=== PATIENT | female | born 1945 | race Caucasian/White ===

== ENCOUNTER 2017-01-25 10:15 | Inpatient (IN) | payer MEDICARE ==
[2017-01-25 11:04] VITALS: BMI 21.8
[2017-01-27] MEDS ORDERED: Phenylephrine 10 MG/NS 250 ML 250 ML ONE (06:11)
[2017-01-27] MEDS ORDERED: Tranexamic Acid 1,000 MG/100 ML BAG ONE ×2 (06:21→09:49)
[2017-01-27] MEDS ORDERED: CEFAZOLIN/Water 2 GM/20 ML SYRINGE ONE (06:22)
[2017-01-27] MEDS ORDERED: Ropivacaine 0.2% HCl/PF 20 ML ONE (06:29)
[2017-01-27] MEDS ORDERED: Fentanyl 100 MCG/2 ML VIAL ONE (06:29)
[2017-01-27] MEDS ORDERED: Midazolam HCl 2 mg/2 ml Vial ONE (06:29)
[2017-01-27] MEDS ORDERED: Levofloxacin 500 mg/D5W 100 ml Premix Bag ONE (06:41)
[2017-01-27] MEDS ORDERED: Ondansetron HCl/PF 4 MG/2 ML Vial ONE ×2 (07:15→07:16)
[2017-01-27] MEDS ORDERED: Dexamethasone 20 MG/5 ML VIAL ONE (07:16)
[2017-01-27] MEDS ORDERED: Glycopyrrolate 0.2 MG/ML 5 ML SYRINGE ONE (07:16)
[2017-01-27] MEDS ORDERED: Propofol 200 MG/20 ML VIAL ONE (07:16)
[2017-01-27] MEDS ORDERED: PHENYLEPHRINE-NS 100 MCG/ML 10 ML SYRINGE ONE (07:16)
[2017-01-27] MEDS ORDERED: traMADol HCl 50 MG TAB PO PRN ×2 (07:32)
[2017-01-27] MEDS ORDERED: Ropivacaine 0.2% 550 ML 550 ML NERVE BLCK SCH (07:32)
[2017-01-27] MEDS ORDERED: Ketorolac Tromethamine 30 MG/ML VIAL IVP PRN (07:32)
[2017-01-27] MEDS ORDERED: Zolpidem Tartrate 5 MG TAB PO PRN (07:32)
[2017-01-27] MEDS ORDERED: Promethazine HCl 25 MG/ML VIAL IM PRN ×2 (07:32→09:34)
[2017-01-27] MEDS ORDERED: HYDROcodone/Acetaminophen 10/325 mg Tablet PO PRN ×2 (07:32)
[2017-01-27] MEDS ORDERED: Ondansetron HCl/PF 4 MG/2 ML Vial IVP PRN ×2 (07:32→09:34)
[2017-01-27] MEDS ORDERED: Fentanyl 100 MCG/2 ML VIAL IV PRN (07:37)
[2017-01-27] MEDS ORDERED: Promethazine HCl 25 MG/ML VIAL SLOW IVP PRN (09:34)
--- NOTE | 2017-01-27 10:37 | RAD ---
TWO VIEWS LEFT SHOULDER: Date: 01-27-17 Comparison: 01-20-17 History: Evaluate shoulder following arthroplasty. FINDINGS: There is a total shoulder arthroplasty on the left. Fracture fragments associated with previously not ed humeral head fracture are again noted lateral to the prosthesis. No widening of the AC or CC inter space. No evidence for hardware failure. IMPRESSION: Interval placement of total shoulder arthroplasty on the left. POS: JUSTIN
--- NOTE | 2017-01-27 11:50 | OP ---
DATE OF PROCEDURE: 01/27/2017 PREOPERATIVE DIAGNOSIS: Left proximal humerus 4-part fracture with biceps tendonopathy. POSTOPERATIVE DIAGNOSIS: Left proximal humerus 4-part fracture with biceps tendonopathy. PROCEDURE PERFORMED: 1. Left reverse total shoulder arthroplasty. 2. Biceps tenodesis. STAFF: Carlito Walker M.D. MOSAICIST: Emeka Crocker PA-C. ANESTHESIA: Fernandes. The patient received general endotracheal intubation, interscalene block. ESTIMATED BLOOD LOSS: 100 mL. TOURNIQUET TIME: None. IMPLANTS: A Tornier 25 mm baseplate with 2 locking, 2 nonlocking screws, a 36 mm sphere centered fle xed 4B cemented long stem with a 0 high offset tray and a 9 poly. ANTIBIOTICS: Ancef 2 grams, Levaquin 500, TXA 1 gram. COMPLICATIONS: None. HISTORY OF PRESENT ILLNESS: Ms. Sanchez is a pleasant 72-year-old female who presented to me with lef t proximal humerus fracture slipping on 01/20/2017. The patient is right hand dominant. Pain is 7/1 0. The patient had a 4-part fracture, did not feel would undergo fixation. I felt it would be best treated with a reverse shoulder arthroplasty. I discussed with the patient the risks and benefits of the surgery to include pain, scar, bleeding, infection, damage to vital structures, decreased range of motion or strength, fracture above or below the stem, need for further surgery, failure of procedu re, continued pain despite surgical intervention. The patient and family understood the risks and be nefits of procedure and elected to proceed. PROCEDURE NOTE: Time-out was performed designating the patient's left upper extremity as the operati ve site based on sight, consents and marked completion of timeout, the patient's left upper extremity was prepped and draped in sterile fashion. Deltopectoral intervals placed, went down, found the vei n, retracted it laterally, took down a portion of the pec, came down onto the biceps in the shaft. W e cut a hole in what would have been the space of the rotator interval that ripped off the anterior a spect of the greater and the lesser and the greater were there and shaft by itself. We exposed the h ead, removed it in block as 1 piece. When doing this, we split the interval up to the coracoid and e xposed the glenoid. We cleaned up 360 degree release, we had cut tenotomized the biceps and exposed the entire glenoid. We took off cartilage and placed after we had reamed, placed a 25 mm baseplate, placed anterior, posterior nonlocking screws. Did not have a great purchase fixation, I did get a go od fixation on my 2 locking screws, had nice stable construct. We then placed our centered sphere. We moved back to our humerus. The patient had broken the head, had split down the lateral aspect of the bone, we were down basically to the base of the calcar. I looked at both 155 degree stem and the Flex stem and I felt that I had 2 cortical widths, 2.5 cortical widths of the stem and the shaft, fe lt I would get the length that I desired. Therefore, I placed my trial. I cemented into place, let it cure for about 18 minutes until completely hard. There was no room for drill holes in the bone, I was concerned it might further destabilize it. We then chose a finally a 4V stem with a 0 offset tr ay and a 9 mm poly in which we placed into position, reduced the shoulder, had good stability and goo d rotation. The version was at 20 degrees retroversion. We had passed a suture underneath the neck of trim for a cerclage wire which we cerclaged the cuff around laterally, we used two [id number] stitches with #5 Ethibond to close the cuff over the shoulder. We then placed the biceps and tenode sed it into this rotator cuff plane. We then washed and then we closed the deltopectoral subcu and p laced garfield. The patient will be admitted to the hospital, receive Ancef and Levaquin in the morning. The patient will be in a sling, work on elbow, wrist, and hand motion until followup.
[2017-01-27] MEDS ORDERED: diphenhydrAMINE 50 MG CAP PO PRN (11:53)
[2017-01-27] MEDS ORDERED: Methocarbamol 500 MG TAB PO PRN (11:53)
[2017-01-27] MEDS ORDERED: Acetaminophen 325 MG TAB PO PRN (11:53)
[2017-01-27] MEDS ORDERED: Ondansetron ODT 4 MG TAB PO PRN (11:53)
[2017-01-27] MEDS ORDERED: Bisacodyl 10 MG SUPP PR PRN (11:53)
[2017-01-27] MEDS ORDERED: Milk Of Magnesia 30 ML UDCUP PO PRN (11:53)
[2017-01-27] MEDS ORDERED: Ropivacaine 0.5% HCl/PF (150 MG/30 ML VIAL) ONE (13:41)
[2017-01-27] MEDS: CEFAZOLIN/Water 2 GM/20 ML SYRINGE SLOW IVP SCH ×2 (16:04→21:20)
[2017-01-27] MEDS: Dextrose 5 %-0.45 % NaCl 1,000 ML IV SCH (16:27)
[2017-01-27] MEDS ORDERED: FLU VACC TS2017-18 (>65YR) 0.5 ML SYRINGE IM ONE (17:15)
[2017-01-27] MEDS ORDERED: Atorvastatin Calcium 10 MG TAB PO SCH (21:00)
[2017-01-27] MEDS: Famotidine 20 MG TAB PO SCH (21:19)
[2017-01-28] MEDS: Dextrose 5 %-0.45 % NaCl 1,000 ML IV SCH (05:09)
[2017-01-28 08:24] VITALS: BP 164/84; TEMP 99.5
[2017-01-28] MEDS: Famotidine 20 MG TAB PO SCH (08:37)
[2017-01-28] MEDS ORDERED: Multivitamin W/ Minerals 1 TAB PO SCH (09:00)
== END 2017-01-28 11:36 | disposition home or self-care (01) | DRG 483 ==
LOC: SURG A 01-27 06:07 → SJJU 01-27 11:39
PROVIDERS: ADMIT Orthopaedic Surgery; ATTEND Orthopaedic Surgery
PROC: 3E0T3BZ Introduction of Anesthetic Agent into Peripheral Nerves and Plexi, Percutaneous Approach (ICD-10-PCS; principal; 2017-01-27)
PROC: 0RRK00Z Replacement of Left Shoulder Joint with Reverse Ball and Socket Synthetic Substitute, Open Approach (ICD-10-PCS; 2017-01-27)
DX: S42.202A Unspecified fracture of upper end of left humerus, initial encounter for closed fracture (principal); E78.5 Hyperlipidemia, unspecified; W01.0XXA Fall on same level from slipping, tripping and stumbling without subsequent striking against object, initial encounter
CPT/HCPCS: 81001; 87081; A4306; C1713; G8978-GP-CJ; G8979-GP-CJ; G8980-GP-CJ; G8987-GO-CJ; G8988-GO-CJ; G8989-GO-CJ; J1100; J1885; J1956; J2250; J2405; J2704; J2795; J3010

== ENCOUNTER 2017-01-25 10:45 | Outpatient (CLI) | payer MEDICARE ==
[2017-01-25 11:48] LABS: Bilirubin Negative (Negative); Blood, Urine Negative (Negative); Glucose, Urine (Dipstick) Negative (Negative); Ketone, Urine Trace mg/dL (Negative); Nitrite Negative (Negative); Protein, Urine (Dipstick) Trace mg/dL (Neg-Trace)
[2017-01-25 11:49] LABS: Bacteria/HPF Rare-Few HPF (None Seen); Hyaline Casts/LPF 4-6 HYALINE CAST LPF (0-3 Hyaline); Squamous Epithelial 0-3 HPF (0-3); WBC/HPF 0-3 HPF (0-3)
== END 2017-01-25 10:46 | disposition home or self-care (01) ==
LOC: LABBT 10:45
PROVIDERS: ATTEND Orthopaedic Surgery
DX: Z01.818 Encounter for other preprocedural examination (principal); S42.202A Unspecified fracture of upper end of left humerus, initial encounter for closed fracture
CPT/HCPCS: 81001; 87081

== ENCOUNTER 2017-06-13 08:19 | Outpatient (CLI) | payer MEDICARE | END 2017-06-13 08:20 | disposition home or self-care (01) | LOC: BICMAMMO 08:19 | PROVIDERS: ATTEND Family Medicine | DX: Z12.31 Encounter for screening mammogram for malignant neoplasm of breast (principal); Z78.0 Asymptomatic menopausal state; E78.00 Pure hypercholesterolemia, unspecified; M81.0 Age-related osteoporosis without current pathological fracture; Z79.899 Other long term (current) drug therapy; Z80.3 Family history of malignant neoplasm of breast | CPT/HCPCS: 77063; 77067; 77080 ==

== ENCOUNTER 2018-03-21 17:30 | Observation (INO) | payer MEDICARE ==
[~2018-03-21 17:30] MED LIST: Iopamidol 370 76% 50 ML VIAL FS ONE
[2018-03-21 17:56] LABS: #Basophils 0.1 thou/uL (0.0-0.2); #Eosinphils 0.2 thou/uL (0.0-0.7); #Lymphocytes 3.6 thou/uL (1.20-3.40); #Monocytes 0.8 thou/uL (0.11-0.59); #Neutrophils 3.8 thou/uL (1.40-6.50); %Basophils 0.8 % (0.0-1.0); %Lymphocytes 42.2 % (21.0-51.0); %Monocytes 9.3 % (0.0-10.0); %Neutrophils 45.6 % (42.0-75.0); Hemoglobin 13.3 g/dL (12.0-16.0); Mean Corpuscular HGB CONC 33.6 g/dL (32.0-36.0); Mean Corpuscular Hemoglobin 30.2 pg (27.0-31.0); Mean Platelet Volume 8.6 fL (7.4-10.4); Platelet Count 196 thou/uL (130-400); RBC Distribution Width 11.4 % (11.5-14.5); White Blood Cell (WBC) Count 8.4 thou/uL (4.8-10.8)
[2018-03-21 18:04] LABS: ALT (SGPT) 28 U/L (8-55); AST (SGOT) 29 U/L (5-34); Albumin 4.4 g/dL (3.4-4.8); Alkaline Phosphatase 177 U/L (40-150); Anion Gap 14 mmol/L (10-20); BUN (Urea Nitrogen) 22 mg/dL (9.8-20.1); Bilirubin, Total 0.6 mg/dL (0.2-1.2); CK (CPK) 100 U/L (29-168); Calc. Creatinine Clearance 0 mL/min (70-130); Calcium 10.4 mg/dL (7.8-10.44); Carbon Dioxide 24 mmol/L (23-31); Chloride 104 mmol/L (98-107); Estimated GFR-MDRD 76; Globulin 2.7 g/dL (2.4-3.5); Glucose 103 mg/dL (83-110); INR-International Normal Ratio 0.9; PTT 25.3 SEC (22.9-36.1); Potassium 3.8 mmol/L (3.5-5.1); Protein, Total 7.1 g/dL (6.0-8.3); Prothrombin Time 12.7 SEC (12.0-14.7); Sodium 138 mmol/L (136-145)
[2018-03-21 18:08] LABS: Troponin I Less than 0.010 ng/mL (< 0.028)
--- NOTE | 2018-03-21 19:50 | CT ---
CT BRAIN: 03/21/2018 PROVIDED CLINICAL HISTORY: Left-sided facial droop. Left-sided numbness. Slurred speech. COMPARISON: 11/27/2016 FINDINGS: The ventricular system is normal in size and morphology. There is no evidence for intracranial hemor rhage or mass effect. Chronic microvascular ischemic changes are seen, predominantly involving the c erebral white matter. There is no evidence for an acute abnormality involving the extracranial soft tissues or osseous structures. IMPRESSION: No evidence for intracranial hemorrhage or mass effect. Findings communicated to Dr. Malone in the emergency department at 5:44 p.m. on 03/21/2018. CODE CR POS: JUSTIN
--- NOTE | 2018-03-21 20:02 | CT ---
CT ANGIOGRAM BRAIN WITH IV CONTRAST AND 3D MIP RECONSTRUCTIONS: CT ANGIOGRAM GREAT VESSELS NECK WITH IV CONTRAST AND 3D MIP RECONSTRUCTIONS: PROVIDED CLINICAL HISTORY: Left-sided facial droop and slurred speech. FINDINGS: There is a normal three-vessel configuration of the great vessels at the arch. The right innominate and subclavian arteries are not well evaluated on the basis of beam hardening artifact from contrast material within the right subclavian and brachiocephalic veins. Given this limitation, the great ves sels of the neck demonstrate no significant stenosis. Minimal atherosclerotic vascular calcification involves the proximal internal carotid arteries bilaterally. There is calcified and noncalcified plaque involving the carotid portions of both internal carotid ar teries. There is no evidence for focal vessel stenosis, branch occlusion, or aneurysm involving the remainder of the intracranial circulation. Biapical parenchymal scarring is seen involving the lung apices. Degenerative changes are seen invol ving the cervical spine. IMPRESSION: 1. No significant stenosis is apparent involving either internal carotid artery. 2. No significant stenosis is apparent involving the intracranial circulation. Findings were discussed with Dr. Malone in the emergency department at 5:58 p.m. on 03/21/2018. CODE CR POS: JUSTIN
[2018-03-21 21:18] VITALS: BMI 21.0
[2018-03-21] MEDS ORDERED: Acetaminophen 325 MG TAB PO PRN (22:05)
[2018-03-21] MEDS ORDERED: Guaifenesin DM 100-10/5 ML UDCUP PO PRN (22:05)
[2018-03-21] MEDS ORDERED: Bisacodyl 5 MG TAB PO PRN (22:05)
[2018-03-21] MEDS ORDERED: Calcium Carbonate 500 MG ChewTAB PO PRN (22:05)
[2018-03-21] MEDS ORDERED: hydrALAZINE 20 MG/ML VIAL SLOW IVP PRN (22:05)
[2018-03-21] MEDS ORDERED: Zolpidem Tartrate 5 MG TAB PO PRN (22:05)
[2018-03-21] MEDS ORDERED: Ondansetron ODT 4 MG TAB PO PRN (22:05)
[2018-03-21] MEDS ORDERED: Senokot S 8.6-50 MG TAB PO PRN (22:05)
[2018-03-21] MEDS ORDERED: Ondansetron PF 4 MG/2 ML Vial IVP PRN (22:05)
[2018-03-21] MEDS ORDERED: Labetalol HCl 100 MG/20 ML VIAL SLOW IVP PRN (22:05)
[2018-03-21 22:06] LABS: Troponin I Less than 0.010 ng/mL (< 0.028)
[2018-03-21] MEDS ORDERED: traMADol HCl 50 MG TAB PO PRN (22:10)
[2018-03-22 00:51] LABS: Troponin I 0.013 ng/mL (< 0.028)
--- NOTE | 2018-03-22 05:26 | HP ---
CHIEF COMPLAINT: Left arm weakness and slurred speech. HISTORY OF PRESENT ILLNESS: This is a 73-year-old female with past medical history of hyperlipidemia, presenting to ED with left arm weakness and slurred speech, which began on the day of admission. Per the patient, she was in the kitchen, making macaroni and cheese when she started having left arm weakness with left-sided facial droop and slurred speech around 4:30 p.m. on the day of admission. Per the patient, the was in the house and witnessed her have the symptoms. Therefore, this prompted the ED visit. The patient states that she has a daughter, but daughter was not in the house at that time. At this time, the patient is lying in bed, and the patient stated that she does not have any symptoms at this time. The patient denies any fever, chills, nausea, vomiting, chest pain, palpitation, abdominal pain, diarrhea, constipation, hematochezia, hematuria, or melena. REVIEW OF SYSTEMS: All systems are reviewed and are negative at this time. PAST MEDICAL HISTORY: Hyperlipidemia. PAST SURGICAL HISTORY: Tubal ligation. FAMILY HISTORY: Reviewed and not significant to this visit. SOCIAL HISTORY: The patient denies alcohol use. Denies any illicit drugs. PSYCHIATRIC HISTORY: No psych history. ALLERGIES: THE PATIENT DOES NOT HAVE ANY KNOWN DRUG ALLERGIES. CURRENT MEDICATIONS: The patient takes: 1. Simvastatin 10 mg. 2. Multivitamins. PHYSICAL EXAMINATION: VITAL SIGNS: Blood pressure 152/62, pulse is 50, respiratory rate of 18, temperature of 98.3, oxygen saturation of 100. GENERAL: The patient is lying in bed, does not appear to be in any acute distress. The patient is talking to me in full sentences. HEENT: Normocephalic and atraumatic. Pupils are equally round and reactive to light. Extraocular movements are intact. No scleral icterus. No conjunctival pallor. Mucous membranes are moist. NECK: Trachea is midline. No JVD. Full range of motion. CARDIAC: Positive S1 and S2. Regular rate and rhythm. No murmurs, no gallops, no rubs appreciated. LUNGS: Clear to auscultation bilaterally. No wheezing, no rales, no rhonchi appreciated. ABDOMEN: Soft, nontender, and nondistended. Positive bowel sounds in all quadrants. No peritoneal signs. EXTREMITIES: The patient has 5/5 upper extremity strength and 5/5 lower extremity strength. The patient has good information systems project manager bilaterally at the upper extremities and the patient has good pulses bilaterally at the upper and lower extremities. SKIN: Warm, dry, and intact. No lesions noted. No rashes noted. NEUROLOGIC: Cranial nerves 2 through 12 grossly intact. No neurologic deficits noted at this time. IMAGING DATA: EKG; 12-lead EKG shows sinus rhythm with a rate of 76. CT of the head is negative. There is no acute intracranial pathology noted. CT [place] angio with contrast showed no significant stenosis involving either the internal carotid arteries. LABORATORY DATA: WBC is 8.4, hemoglobin 13.3, hematocrit is 39.6, MCV is 90, RDW is 11.4. PT is 12.7, INR 0.9. Electrolytes; sodium is 138, potassium is 3.8, chloride is 104, carbon dioxide of 24, anion gap of 14, BUN is 22, creatinine is 0.75, AST 29, ALT 28, alkaline phosphatase 177. Troponin is less than 0.010 x3. ASSESSMENT AND PLAN: 1. This is a 73-year-old female with history of hyperlipidemia, being admitted for left-sided weakness likely due to transient ischemic attack rule out cerebrovascular accident. At this time, CT of the head has been negative. We have ordered MRI of the head. We have consulted Neurology. We will start the patient on aspirin and atorvastatin. PT, OT. We will follow up with their recommendations. We will follow up with neuro recommendations. The patient has been admitted to the stroke unit. We will monitor the patient closely. 2. Hyperlipidemia. We will continue the patient on atorvastatin 80 mg daily. We will monitor the patient closely. 3. Deep venous thrombosis and gastrointestinal prophylaxis. Job ID: [id number]
[2018-03-22 06:06] LABS: #Basophils 0.1 thou/uL (0.0-0.2); #Eosinphils 0.1 thou/uL (0.0-0.7); #Lymphocytes 1.9 thou/uL (1.20-3.40); #Monocytes 0.6 thou/uL (0.11-0.59); #Neutrophils 4.6 thou/uL (1.40-6.50); %Basophils 0.9 % (0.0-1.0); %Lymphocytes 25.4 % (21.0-51.0); %Monocytes 8.5 % (0.0-10.0); %Neutrophils 63.2 % (42.0-75.0); Mean Corpuscular HGB CONC 34.1 g/dL (32.0-36.0); Mean Corpuscular Hemoglobin 30.4 pg (27.0-31.0); Mean Corpuscular Volume 89.1 fL (78.0-98.0); Mean Platelet Volume 8.9 fL (7.4-10.4); Platelet Count 187 thou/uL (130-400); RBC Distribution Width 11.5 % (11.5-14.5); Red Blood Cell (RBC) Count 4.29 mill/uL (4.20-5.40); White Blood Cell (WBC) Count 7.3 thou/uL (4.8-10.8)
[2018-03-22 06:25] LABS: Anion Gap 12 mmol/L (10-20); BUN (Urea Nitrogen) 16 mg/dL (9.8-20.1); Calc. Creatinine Clearance 67 mL/min (70-130); Calcium 10.1 mg/dL (7.8-10.44); Carbon Dioxide 26 mmol/L (23-31); Cardiac Risk 3.1 (Less than 4.5); Chloride 104 mmol/L (98-107); Cholesterol 172 mg/dl (< 200 Desired); Estimated GFR-MDRD 85; Glucose 95 mg/dL (83-110); HDL Cholesterol 55 mg/dL (>60 Neg Risk); LDL Cholesterol, Calculated 104 mg/dL; Potassium 3.8 mmol/L (3.5-5.1); Sodium 138 mmol/L (136-145); Triglycerides 65 mg/dL (Less than 150)
[2018-03-22] MEDS ORDERED: Lorazepam 1 MG TAB PO PRN (08:43)
[2018-03-22] MEDS ORDERED: Famotidine/PF 20 mg/2ml Vial SLOW IVP SCH (09:00)
[2018-03-22] MEDS ORDERED: Enoxaparin Sodium 40 MG/0.4 ML SYRINGE SC SCH (09:00)
[2018-03-22] MEDS: Aspirin 81 mg Enteric Coated Tablet PO SCH (09:36)
[2018-03-22] MEDS: Multivitamin W/ Minerals 1 TAB PO SCH (09:36)
[2018-03-22] MEDS: Famotidine 20 MG TAB PO SCH ×2 (09:36→21:15)
--- NOTE | 2018-03-22 13:20 | MRI ---
MRI BRAIN WITHOUT CONTRAST: 03/22/2018 HISTORY: Left-sided weakness and slurred speech. Left facial droop. Assess for acute infarction. TECHNIQUE: Multiplanar, multisequence MR imaging of the brain provided without contrast. FINDINGS: The diffusion-weighted imaging demonstrates no evidence for acute infarction. Axial gradient echo im aging demonstrates no evidence for intracranial hemorrhage. Regional bone marrow signal intensity appears within normal limits. There is prominent extensive periventricular, deep, and subcortical white matter T2 and FLAIR hyperin tensity, evidence of prominent small vessel disease. Mild associated cerebral volume loss. No midli ne shift or mass effect. The arterial flow voids, at the axial level of the skull base, appear unremarkable on the T2 weighted imaging. IMPRESSION: Prominent small vessel disease with no evidence for acute infarction. POS: RADHA
[2018-03-22] MEDS ORDERED: Labetalol HCl 100 MG/20 ML VIAL SLOW IVP PRN (13:40)
[2018-03-22] MEDS ORDERED: Atorvastatin Calcium 40 MG TAB PO SCH (21:00)
[2018-03-22] MEDS ORDERED: Atorvastatin Calcium 20 MG TAB PO SCH (21:00)
--- NOTE | 2018-03-22 21:20 | PDOC.PN ---
- Subjective Encounter Start Date: 03/22/18 Encounter Start Time: 17:00 Patient seen and examined for TIA. No new focal deficits. No new complaints. No overnight events - Objective Resuscitation Status - Order Detail: 03/21/18 22:05 Resuscitation Status Routine Resuscitation Status: FULL: Full Resuscitation MAR Reviewed: Yes Vital Signs & Weight: Vital Signs (12 hours) Temp Pulse Pulse Pulse Resp BP BP 03/22/18 15:25 77 81 140/89 142/85 H 03/22/18 15:14 99.9 F H 74 16 03/22/18 11:53 98.7 F 84 16 BP Pulse Ox 03/22/18 15:25 03/22/18 15:14 123/78 96 03/22/18 11:53 131/88 96 Weight Weight 126 lb 8 oz I&O: 03/21/18 03/22/18 03/23/18 06:59 06:59 06:59 Intake Total 960 Balance 960 Result Diagrams: 03/22/18 05:22 03/22/18 05:22 Radiology Reviewed by me: Yes (MRI - No CVA - small vessel disease) EKG Reviewed by me: Yes (Tele SR) Phys Exam - Physical Examination Constitutional: NAD Respiratory: no wheezing, no rales, no rhonchi, clear to auscultation bilateral Cardiovascular: RRR, no significant murmur, no rub no heaves/pulsations Gastrointestinal: soft, non-tender, no distention, positive bowel sounds Musculoskeletal: no edema, pulses present Neurological: non-focal, normal sensation, moves all 4 limbs Psychiatric: normal affect, A&O x 3 Skin: no rash Dx/Plan (1) TIA (transient ischemic attack) Code(s): G45.9 - TRANSIENT CEREBRAL ISCHEMIC ATTACK, UNSPECIFIED Status: Acute (2) HLD (hyperlipidemia) Code(s): E78.5 - HYPERLIPIDEMIA, UNSPECIFIED Status: Chronic (3) CKD (chronic kidney disease) stage 2, GFR 60-89 ml/min Code(s): N18.2 - CHRONIC KIDNEY DISEASE, STAGE 2 (MILD) Status: Chronic (4) HTN (hypertension) Code(s): I10 - ESSENTIAL (PRIMARY) HYPERTENSION Status: Chronic - Plan plan discussed w/ family, DVT proph w/lovenox, DVT proph w/SCDs ASA started -: Increase Lipitor dose -: Await Echo -: Carotids negative -: Probably will not need anti HTN meds, DC home after Echo Review of Systems - Review of Systems Respiratory: negative: Cough, Dry, Shortness of Breath, Hemoptysis, SOB with Excertion, Pleuritic Pain, Sputum, Wheezing Cardiovascular: negative: chest pain, palpitations, orthopnea, paroxysmal nocturnal dyspnea, edema, light headedness, other Gastrointestinal: negative: Nausea, Vomiting, Abdominal Pain, Diarrhea, Constipation, Melena, Hematochezia, Other Genitourinary: negative: Dysuria, Frequency, Incontinence, Hematuria, Retention , Other - Medications/Allergies Allergies/Adverse Reactions: Allergies Allergy/AdvReac Type Severity Reaction Status Date / Time No Known Allergies Allergy Unverified 01/25/17 11:04 Medications: Current Medications Acetaminophen (Tylenol) 650 mg PO Q4H PRN PRN Reason: Headache/Fever/Mild Pain (1-3) Aspirin (Ecotrin) 81 mg PO DAILY [facility] Last Admin: 03/22/18 09:36 Dose: 81 mg Atorvastatin Calcium (Lipitor) 20 mg PO HS [facility] Last Admin: 03/22/18 21:15 Dose: 20 mg Bisacodyl (Dulcolax) 10 mg PO DAILYPRN PRN PRN Reason: Constipation Calcium Carbonate (Tums) 1,000 mg PO Q4H PRN PRN Reason: Heartburn or Indigestion Enoxaparin Sodium (Lovenox) 40 mg SC 0900 [facility] Last Admin: 03/22/18 09:36 Dose: 40 mg Famotidine (Pepcid) 20 mg PO BID [facility] Last Admin: 03/22/18 21:15 Dose: 20 mg Guaifenesin/Dextromethorphan (Robitussin Dm) 15 ml PO Q4H PRN PRN Reason: Cough Hydralazine HCl (Apresoline) 10 mg SLOW IVP Q4H PRN PRN Reason: BP > 220/110 Iron/Minerals/Multivitamins (Theragran M) 1 tab PO DAILY [facility] Last Admin: 03/22/18 09:36 Dose: 1 tab Labetalol HCl (Normodyne) 10 mg SLOW IVP Q4H PRN PRN Reason: Systolic BP > 180 Lorazepam (Ativan) 1 mg PO DAILY PRN PRN Reason: Claustrophobia Last Admin: 03/22/18 10:18 Dose: 1 mg Ondansetron HCl (Zofran Odt) 4 mg PO Q6H PRN PRN Reason: Nausea/Vomiting Ondansetron HCl (Zofran) 4 mg IVP Q6H PRN PRN Reason: Nausea/Vomiting Senna/Docusate Sodium (Senokot S) 2 tab PO BID PRN PRN Reason: Constipation Sodium Chloride (Flush - Normal Saline) 10 ml IVF Q12HR PRN PRN Reason: Saline Flush Sodium Chloride (Flush - Normal Saline) 10 ml IVF PRN PRN PRN Reason: Saline Flush Tramadol HCl (Ultram) 100 mg PO Q6H PRN PRN Reason: Moderate Pain 4-6 Zolpidem Tartrate (Ambien) 5 mg PO HSPRN PRN PRN Reason: Insomnia
[2018-03-23] MEDS: Famotidine 20 MG TAB PO SCH (09:24)
[2018-03-23] MEDS: Aspirin 81 mg Enteric Coated Tablet PO SCH (09:24)
[2018-03-23] MEDS: Multivitamin W/ Minerals 1 TAB PO SCH (09:24)
[2018-03-23 11:55] VITALS: BP 126/79; TEMP 98.6
[2018-03-23] MEDS ORDERED: Enoxaparin Sodium 40 MG/0.4 ML SYRINGE SC SCH (21:00)
--- NOTE | 2018-03-23 21:28 | DIS ---
DATE OF ADMISSION: 03/21/2018 DATE OF DISCHARGE: 03/23/2018 DISCHARGE DISPOSITION: Home. FOLLOWUP: 1. Follow up with primary care physician, Dr. Freeman in 1 week. 2. Follow up with Neurology, Dr. Reynoso in 2 weeks. ALLERGIES: NO KNOWN DRUG ALLERGIES. DISCHARGE MEDICATIONS: 1. Aspirin 81 mg daily. 2. Lipitor 20 mg at bedtime. 3. Multivitamin one tablet daily. The patient was seen on the day of discharge. Denies any new complaints. No new focal deficit. DIAGNOSTIC TESTS: LDL 104, cholesterol 172, HDL 55, and triglycerides 65. WBC 8.4 and hemoglobin 13.3. BUN 16 and creatinine 0.68. Echocardiogram showed left ventricular ejection fraction of 55% to 60% with mild tricuspid regurgitation. There was no thrombus in the cardiac chambers. MRI of the brain showed prominent small-vessel disease without any acute infarction. CT angiogram of the head and neck were essentially negative. BRIEF HOSPITAL COURSE: The patient is a 73-year-old female with hyperlipidemia, presented to the emergency room with stroke-like symptoms. Please refer to the history and physical for further details. The patient was admitted to the hospital with a diagnosis of transient ischemic attack. She had some left arm weakness with slurriness of speech that resolved within few minutes. She was monitored in the stroke unit. She underwent stroke workup as discussed above. She was also evaluated by Neurology Service. Neurology recommended 81 mg aspirin along with increasing the dose of statin. She appears stable for discharge. FINAL DIAGNOSES: 1. Transient ischemic attack. 2. Hyperlipidemia. 3. Chronic kidney disease, stage 2. 4. Hypertension. PLAN: Plan of care was discussed with the patient and the family in detail. They stated understanding. Job ID: [id number]
--- NOTE | 2018-03-25 21:26 | EKG ---
Test Reason : Blood Pressure : / mmHG Vent. Rate : 076 BPM Atrial Rate : 076 BPM P-R Int : 134 ms QRS Dur : 070 ms QT Int : 368 ms P-R-T Axes : 000 014 053 degrees QTc Int : 414 ms Normal sinus rhythm Normal ECG Confirmed by LUCIEN WASHINGTON ([id number]), editor greeting card KAYCE MELÉNDEZ ([id number]) on 03/25/2018 9:25:52 PM Referred By: Confirmed By:LUCIEN WASHINGTON
== END 2018-03-23 13:45 | disposition home or self-care (01) ==
LOC: ERS 17:30 → INTOOBSV 18:23 → 2SE 18:23
PROVIDERS: ADMIT Emergency Medicine; ATTEND Emergency Medicine
DX: G45.9 Transient cerebral ischemic attack, unspecified (principal); E78.5 Hyperlipidemia, unspecified; I12.9 Hypertensive chronic kidney disease with stage 1 through stage 4 chronic kidney disease, or unspecified chronic kidney disease; N18.2 Chronic kidney disease, stage 2 (mild); Z79.899 Other long term (current) drug therapy
CPT/HCPCS: 70450; 70496; 70498; 70551; 80048; 80053; 80061; 82550; 82553; 82962; 84484 ×3; 85025 ×2; 85610; 85730; 93005; 93306; 97139 ×3; 99285; G0378; 36415; 36416; J1650

== ENCOUNTER 2018-06-14 09:38 | Outpatient (CLI) | payer MEDICARE ==
--- NOTE | 2018-06-14 11:14 | MMO ---
Bilateral MAMMO Bilat Screen [facility]. CLINICAL HISTORY: Patient is 73 years old and is seen for screening. The patient has the following family history of breast cancer: maternal aunt and daughter, at age 25, premenopausal, AND [place] 2013. The patient has no personal history of cancer. VIEWS: The views performed were: bilateral craniocaudal with tomosynthesis and bilateral mediolateral oblique with tomosynthesis. FILMS COMPARED: The present examination has been compared to prior imaging studies performed at [facility] on 04/18/2006, 05/23/2007, 05/23/2008, 05/26/2009, 05/27/2010, 05/31/2011, 05/31/2012, 06/01/2013, 06/05/2014, 06/09/2015, 06/09/2016 and 06/13/2017, and at [facility] on 03/12/2002, 03/05/2003 and 04/16/2005. MAMMOGRAM FINDINGS: The breasts are heterogeneously dense, which could obscure a lesion on mammography. There are stable benign appearing calcifications seen in both breasts. There are no suspicious masses, suspicious calcifications, or new areas of architectural distortion. IMPRESSION: THERE IS NO MAMMOGRAPHIC EVIDENCE OF MALIGNANCY. A ROUTINE FOLLOW-UP MAMMOGRAM IN 1 YEAR IS RECOMMENDED. THE RESULTS OF THIS EXAM WERE SENT TO THE PATIENT. ACR BI-RADS Category 2 - Benign finding MAMMOGRAPHY NOTE: 1. A negative mammogram report should not delay a biopsy if a dominant of clinically suspicious mass is present. 2. Approximately 10% to 15% of breast cancers are not detected by mammography. 3. Adenosis and dense breasts may obscure an underlying neoplasm.
== END 2018-06-14 09:39 | disposition home or self-care (01) ==
LOC: BICMAMMO 09:38
PROVIDERS: ATTEND Family Medicine
DX: Z12.31 Encounter for screening mammogram for malignant neoplasm of breast (principal)
CPT/HCPCS: 77063; 77067

== ENCOUNTER 2019-07-17 09:18 | Outpatient (CLI) | payer MEDICARE ==
--- NOTE | 2019-07-17 10:49 | MMO ---
Bilateral MAMMO Bilat Screen [facility]. CLINICAL HISTORY: Patient is 74 years old and is seen for screening. The patient has the following family history of breast cancer: maternal aunt and daughter, at age 25, premenopausal, AND [place] 2013. The patient has no personal history of cancer. VIEWS: The views performed were: bilateral craniocaudal with tomosynthesis and bilateral mediolateral oblique with tomosynthesis. FILMS COMPARED: The present examination has been compared to prior imaging studies performed at [facility] on 06/09/2016, 06/13/2017 and 06/14/2018. This study has been interpreted with the assistance of computer-aided detection. MAMMOGRAM FINDINGS: The breasts are heterogeneously dense, which could obscure a lesion on mammography. Benign calcifications are noted bilaterally. There are no suspicious masses, suspicious calcifications, or new areas of architectural distortion. IMPRESSION: THERE IS NO MAMMOGRAPHIC EVIDENCE OF MALIGNANCY. A ROUTINE FOLLOW-UP MAMMOGRAM IN 1 YEAR IS RECOMMENDED. THE RESULTS OF THIS EXAM WERE SENT TO THE PATIENT. ACR BI-RADS Category 2 - Benign finding MAMMOGRAPHY NOTE: 1. A negative mammogram report should not delay a biopsy if a dominant of clinically suspicious mass is present. 2. Approximately 10% to 15% of breast cancers are not detected by mammography. 3. Adenosis and dense breasts may obscure an underlying neoplasm. Reported by: SALINAS MINOR MD Electonically Signed: [id number]
== END 2019-07-17 09:19 | disposition home or self-care (01) ==
LOC: BICMAMMO 09:18
PROVIDERS: ATTEND Family Medicine
DX: Z12.31 Encounter for screening mammogram for malignant neoplasm of breast (principal); Z80.3 Family history of malignant neoplasm of breast
CPT/HCPCS: 77063; 77067

== ENCOUNTER 2020-02-14 10:53 | Outpatient (CLI) | payer MEDICARE ==
--- NOTE | 2020-02-14 13:36 | BD ---
EXAM: DEXA bone density examination HISTORY: Osteoporosis screening COMPARISON: None FINDINGS: L1--bone mineral density 0.786 g/sq cm; T score -1.9. Z score 0.3 L2--bone mineral density 0.892 g/sq cm; T score -1.2; Z score 1.1 L3--bone mineral density 0.933 g/sq cm; T score -1.4; Z score 1.1 L4--bone mineral density 0.986 g/sq cm; T score -0.7, Z score 1.9 Total L1-L4--bone mineral density 0.907 g/sq cm; T score -1.3, Z score 1.1 Left femoral neck--bone mineral density0.673; T score -1.6, Z score 0.5 Total proximal left femur--bone mineral density 0.733; T score -1.7, Z score 0.1 IMPRESSION: Based on the WHO criteria, the patient's bone mineral density is consideredosteopenic. Th e patient is at moderate risk for fracture
== END 2020-02-14 10:54 | disposition home or self-care (01) ==
LOC: BICMAMMO 10:53
PROVIDERS: ATTEND Family Medicine
DX: M80.0 Age-related osteoporosis with current pathological fracture (principal); M85.89 Other specified disorders of bone density and structure, multiple sites
CPT/HCPCS: 77080

== ENCOUNTER 2020-07-21 10:29 | Outpatient (CLI) | payer MEDICARE | END 2020-07-21 10:30 | disposition home or self-care (01) | LOC: BICMAMMO 10:29 | PROVIDERS: ATTEND Family Medicine | DX: Z12.31 Encounter for screening mammogram for malignant neoplasm of breast (principal); Z80.3 Family history of malignant neoplasm of breast | CPT/HCPCS: 77063; 77067 ==

== ENCOUNTER 2021-07-22 10:59 | Outpatient (CLI) | payer MEDICARE | END 2021-07-22 11:00 | disposition home or self-care (01) | LOC: BICMAMMO 10:59 | PROVIDERS: ATTEND Family Medicine | DX: Z12.31 Encounter for screening mammogram for malignant neoplasm of breast (principal); Z80.3 Family history of malignant neoplasm of breast | CPT/HCPCS: 77063; 77067 ==

== ENCOUNTER 2022-02-15 10:27 | Outpatient (CLI) | payer MEDICARE | END 2022-02-15 10:28 | disposition home or self-care (01) | LOC: BICMAMMO 10:27 | PROVIDERS: ATTEND Family Medicine | DX: Z13.820 Encounter for screening for osteoporosis (principal); N95.9 Unspecified menopausal and perimenopausal disorder; M85.89 Other specified disorders of bone density and structure, multiple sites | CPT/HCPCS: 77080 ==

== ENCOUNTER 2023-08-23 10:38 | Outpatient (CLI) | payer MEDICARE | END 2023-08-23 10:39 | disposition home or self-care (01) | LOC: BICMAMMO 10:38 | PROVIDERS: ATTEND Family Medicine | DX: Z12.31 Encounter for screening mammogram for malignant neoplasm of breast (principal); Z80.3 Family history of malignant neoplasm of breast | CPT/HCPCS: 77063; 77067 ==

== ENCOUNTER 2024-09-12 10:42 | Outpatient (CLI) | payer MEDICARE | END 2024-09-12 10:43 | disposition home or self-care (01) | LOC: BICMAMMO 10:42 | PROVIDERS: ATTEND Family Medicine | DX: Z12.31 Encounter for screening mammogram for malignant neoplasm of breast (principal); Z80.3 Family history of malignant neoplasm of breast | CPT/HCPCS: 77063; 77067 ==